=== PATIENT | male | born 1985 | race American Indian/Alaskan Native ===

== ENCOUNTER 2018-11-19 12:06 | Emergency (ER) | payer OTHER ==
[2018-11-19 12:23] VITALS: BP 128/84
[2018-11-19] MEDS ORDERED: IBUPROFEN PO ONE (12:51)
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
== END 2018-11-19 14:44 | disposition home or self-care (01) ==
LOC: EDSEX → ED 12:06
DX: S63.502A Unspecified sprain of left wrist, initial encounter (principal); S60.221A Contusion of right hand, initial encounter; V49.49XA Driver injured in collision with other motor vehicles in traffic accident, initial encounter; Y93.89 Activity, other specified; Y92.89 Other specified places as the place of occurrence of the external cause; Y99.8 Other external cause status

== ENCOUNTER 2019-04-14 11:58 | Emergency (ER) | payer SELFPAY ==
--- NOTE | 2019-04-14 12:32 | Emergency Department Report ---
Blank Doc - Documentation Documentation: 33-year-old male that presents with right sided neck pain with radiation of ri ght arm. Denies any injuries This initial assessment/diagnostic orders/clinical plan/treatment(s) is/are subject to change based on patient's health status, clinical progression and re- assessment by fellow clinical providers in the ED. Further treatment and workup at subsequent clinical providers discretion. Patient/guardians urged not to elope from the ED as their condition may be serious if not clinically assessed and managed. Initial orders include: 1- Patient sent to [facility] for further evaluation and treatment
[2019-04-14 12:33] VITALS: BP 114/75
--- NOTE | 2019-04-14 13:23 | Emergency Department Report ---
ED Neck Pain/Injury HPI - General Chief Complaint: Back Pain/Injury Stated Complaint: UPPER BACK/ ARM PAIN Time Seen by Provider: 04/14/19 12:31 Mode of arrival: Ambulatory Limitations: No Limitations - History of Present Illness Initial Comments: This is a 33-year-old male nontoxic, well nourished in appearance, no acute signs of distress presents to the ED with c/o of left sided upper back pain. Patient stated that he wake up this way. Patient denies any trauma. Denies any bladder or bowel instability. Stated pain radiates to left arm. Patient denies any urinary symptoms. Denies any fever, chills, nausea, vomiting, headache, stiff neck, chest pain or shortness of breath. Patient denies any numbness or tingling. Denies any allergies. MD Complaint: upper back pain -: This morning Place: home Radiation: left upper extremity Severity: mild Severity scale (0 -10): 8 Quality: other (aching) Consistency: intermittent Improves With: immobilization Worsens With: movement of extremity, movement of neck Associated Symptoms: none. denies: headache, fever, numbness, tingling, weakness, vertigo, difficulty walking, swollen glands, difficulty swallowing, nausea, vomiting Treatments Prior to Arrival: none - Related Data Previous Rx's Medication Instructions Recorded Last Taken Type Ketorolac [Toradol] 10 mg PO Q6H PRN #12 tablet 11/19/18 Unknown Rx traMADol [Ultram] 50 mg PO Q6HR PRN #12 tablet 11/19/18 Unknown Rx Cyclobenzaprine [Flexeril] 10 mg PO QHS PRN #10 tablet 04/14/19 Unknown Rx Naproxen 500 mg PO BID PRN #20 tablet 04/14/19 Unknown Rx Allergies Allergy/AdvReac Type Severity Reaction Status Date / Time No Known Allergies Allergy Verified 11/19/18 12:09 ED Review of Systems ROS: Stated complaint: UPPER BACK/ ARM PAIN Other details as noted in HPI Constitutional: denies: chills, fever Eyes: denies: eye pain, eye discharge, vision change ENT: denies: ear pain, throat pain Respiratory: denies: cough, shortness of breath, wheezing Cardiovascular: denies: chest pain, palpitations Endocrine: no symptoms reported Gastrointestinal: denies: abdominal pain, nausea, diarrhea Genitourinary: denies: urgency, dysuria Musculoskeletal: denies: back pain, joint swelling, arthralgia Skin: denies: rash, lesions Neurological: denies: headache, weakness, paresthesias Psychiatric: denies: anxiety, depression Hematological/Lymphatic: denies: easy bleeding, easy bruising ED Past Medical Hx - Past Medical History Previous Medical History?: Yes Hx Diabetes: Yes - Surgical History Past Surgical History?: Yes Additional Surgical History: bilateral cataract surgery - Social History Smoking Status: Current Every Day Smoker Substance Use Type: None - Medications Home Medications: Home Medications Medication Instructions Recorded Confirmed Last Taken Type Ketorolac [Toradol] 10 mg PO Q6H PRN #12 tablet 11/19/18 Unknown Rx traMADol [Ultram] 50 mg PO Q6HR PRN #12 tablet 11/19/18 Unknown Rx Cyclobenzaprine [Flexeril] 10 mg PO QHS PRN #10 tablet 04/14/19 Unknown Rx Naproxen 500 mg PO BID PRN #20 tablet 04/14/19 Unknown Rx ED Physical Exam - General Limitations: No Limitations General appearance: alert, in no apparent distress - Head Head exam: Present: atraumatic, normocephalic - Neck Neck exam: Present: normal inspection, full ROM. Absent: tenderness, meningismus, lymphadenopathy - Extremities Exam Extremities exam: Present: normal inspection, full ROM, normal capillary refill. Absent: tenderness, joint swelling - Back Exam Back exam: Present: normal inspection, full ROM, paraspinal tenderness (right cervical paraspinal area). Absent: tenderness, CVA tenderness (R), CVA tenderness (L), muscle spasm, vertebral tenderness, rash noted - Neurological Exam Neurological exam: Present: alert, oriented X3, normal gait - Psychiatric Psychiatric exam: Present: normal affect, normal mood - Skin Skin exam: Present: warm, dry, intact, normal color. Absent: rash ED Course Vital Signs 04/14/19 12:31 Temperature 98.3 F Pulse Rate 85 Respiratory 18 Rate Blood Pressure 114/75 O2 Sat by Pulse 99 Oximetry - Reevaluation(s) Reevaluation #1: 04/14/19 13:21 Patient is speaking in full sentences with no signs of distress noted. ED Medical Decision Making - Medical Decision Making This is a 33-year-old male that presents with upper back strain. Patient is stable was examined by me. There is no spinal tenderness. There is no cauda equina syndrome during examination. No bladder or bowel instability. Patient is discharged with muscle relaxant and NSAID. Patient was instructed not to operate any machinery while taking muscle relaxant as they cause her drowsiness. Patient was referred to Follow-up with a primary care doctor in 3-5 days or if symptoms worsen and continue return to emergency room as soon as possible. At time of discharge, the patient does not seem toxic or ill in appearance. No acute signs of distress noted. Patient agrees to discharge treatment plan of care. No further questions noted by the patient. Critical care attestation.: If time is entered above; I have spent that time in minutes in the direct care of this critically ill patient, excluding procedure time. ED Disposition Clinical Impression: Cervical muscle strain Qualifiers: Encounter type: initial encounter Qualified Code(s): S16.1XXA - Strain of musc le, fascia and tendon at neck level, initial encounter Disposition: TO HOME OR SELFCARE Is pt being admited?: No Does the pt Need Aspirin: No Condition: Stable Instructions: Muscle Strain (ED), Cyclobenzaprine (By mouth) Additional Instructions: Follow-up with a primary care doctor in 3-5 days or if symptoms worsen and continue return to emergency room as soon as possible. Prescriptions: Cyclobenzaprine [Flexeril] 10 mg PO QHS PRN #10 tablet PRN Reason: Muscle Spasm Naproxen 500 mg PO BID PRN #20 tablet PRN Reason: Pain , Severe (7-10) Referrals: PRIMARY CAREMD [Referring] - 3-5 Days FARHAD MONTANA MD [Staff Physician] - 3-5 Days [facility] [Outside] - 3-5 Days [facility] [Outside] - 3-5 Days Forms: Work/School Release Form(ED)
== END 2019-04-14 14:15 | disposition home or self-care (01) ==
LOC: ED 11:58
DX: S16.1XXA Strain of muscle, fascia and tendon at neck level, initial encounter (principal); E11.9 Type 2 diabetes mellitus without complications; F17.200 Nicotine dependence, unspecified, uncomplicated; Z79.899 Other long term (current) drug therapy; X50.0XXA Overexertion from strenuous movement or load, initial encounter; Y93.89 Activity, other specified; Y92.89 Other specified places as the place of occurrence of the external cause; Y99.8 Other external cause status
CPT/HCPCS: 99281

== ENCOUNTER 2019-08-29 12:08 | Emergency (ER) | payer SELFPAY ==
[2019-08-29 12:18] VITALS: BP 144/86
== END 2019-08-29 15:56 | disposition left against medical advice (07) ==
LOC: ED 12:08
DX: M54.5 Low back pain (principal); Z53.21 Procedure and treatment not carried out due to patient leaving prior to being seen by health care provider
CPT/HCPCS: 82962

== ENCOUNTER 2020-04-22 10:26 | Emergency (ER) | payer SELFPAY ==
[2020-04-22 10:50] VITALS: BP 125/81
--- NOTE | 2020-04-22 10:50 | Event Note ---
ED Screening Note Date of service: 04/22/20 Time: 10:49 ED Screening Note: Patient complains of mid/upper abdominal pain x1 to 2 weeks History of type 1 diabetes Denies any nausea/vomiting This initial assessment/diagnostic orders/clinical plan/treatment(s) is/are subject to change based on patients health status, clinical progression and re- assessment by fellow clinical providers in the ED. Further treatment and workup at subsequent clinical providers discretion. Patient/guardian urged not to elope from the ED as their condition may be serious if not clinically assessed and managed. Initial orders include: Labs
[2020-04-22 11:38] LABS: Basophils % (Auto) 0.2 % (0.0-1.8); Eosinophils % (Auto) 0.5 % (0.0-4.3); Hematocrit 43.9 % (35.5-45.6); Hemoglobin 14.1 gm/dl (11.8-15.2); Lymphocytes # (Auto) 2.5 K/mm3 (1.2-5.4); Mean Corpuscular HGB Conc 32 % (32-34); Mean Corpuscular Volume 88 fl (84-94); Monocytes # (Auto) 0.8 K/mm3 (0.0-0.8); Monocytes % (Auto) 10.7 % (0.0-7.3); Platelet Count 246 K/mm3 (140-440); Red Cell Distribution Width 12.7 % (13.2-15.2)
[2020-04-22 11:58] LABS: Alanine Aminotransferase 71 units/L (7-56); Albumin 4.3 g/dL (3.9-5); BUN/Creatinine Ratio 18; Blood Urea Nitrogen 11 mg/dL (9-20); Calcium 9.3 mg/dL (8.4-10.2); Hemolysis Index 10
[2020-04-22] MEDS ORDERED: FAMOTIDINE 20 MG TAB PO ONE (12:19)
[2020-04-22] MEDS ORDERED: DICYCLOMINE 20 MG TAB PO ONE (12:19)
--- NOTE | 2020-04-22 12:38 | Emergency Department Report ---
ED Abdominal Pain HPI - General Chief Complaint: Abdominal Pain Stated Complaint: DIARRHEA/UPSET STOMACH Time Seen by Provider: 04/22/20 10:48 Source: patient Mode of arrival: Ambulatory Limitations: No Limitations - History of Present Illness Initial Comments: The patient was evaluated in the emergency department for symptoms described in the history of present illness. He/she was evaluated in the context of the global COVID-19 pandemic, which necessitated consideration that the patient might be at risk for infection with the virus that causes COVID-19. Institutional protocols and algorithms that pertain to the evaluation of patients at risk for COVID-19 are in a state of rapid change based on information released by regulatory bodies including the CDC and federal and state organizations. These policies and algorithms were followed during the patient's care in the emergency department. Please note that these policies, procedures and recommendations changed on a rapid basis. 34-year-old -M[place] male with a current history of diabetes type 1 presents to the emergency room complaining of upper abdominal discomfort for abo ut 1 to 2 weeks. Patient states that it is more like belching and an upset stomach. Patient admits to mild nausea but denies any vomiting. He does admit to diarrhea. Patient denies any painful urination and no increased urination. Patient reports he does not have a primary care provider. Patient states he has not taken anything for his discomfort. Patient reports the last time he seen a provider regarding his diabetes was when he was last seen here June 16, 2019. Patient states that he has been getting his insulin [id number] to the pharmacist. Patient reports he is currently on Levemir 20 units nightly and insulin P NPH 70/30 sliding scale based on his consumption of food. Patient does admit to a 5 pound weight loss in the last 2 to 3 weeks. Patient reports that his blood sugar this morning was 88. Onset/Timin -: week(s) Location: diffuse Radiation: none Migration to: no migration Severity scale (0 -10): 0 Quality: other (Feels upset) Consistency: intermittent Improves With: nothing Worsens With: nothing Associated Symptoms: nausea, diarrhea, anorexia. denies: vomiting, hematemesis, hematochezia - Related Data Home Medications Medication Instructions Recorded Confirmed Last Taken Insulin Detemir [Levemir VIAL] 15 unit SQ QHS 06/16/19 06/16/19 Unknown Insulin NPH/Regular [Novolin 70/30] 10 unit SQ TIDAC 06/16/19 06/16/19 Unknown Previous Rx's Medication Instructions Recorded Last Taken Type Insulin NPH Hum/Reg Insulin Hm 12 unit SQ BID #1 vial 06/16/19 Unknown Rx [Relion Novolin 70-30 Vial] Ketorolac [Toradol] 10 mg PO Q6H PRN #10 tablet 08/29/19 Unknown Rx Naproxen 500 mg PO BID #20 tablet 12/09/19 Unknown Rx Allergies Allergy/AdvReac Type Severity Reaction Status Date / Time No Known Allergies Allergy Verified 12/09/19 10:11 ED Review of Systems ROS: Stated complaint: DIARRHEA/UPSET STOMACH Other details as noted in HPI Comment: All other systems reviewed and negative ED Past Medical Hx - Past Medical History Previous Medical History?: Yes Hx Diabetes: Yes - Surgical History Past Surgical History?: Yes Additional Surgical History: bilateral cataract surgery - Social History Smoking Status: Never Smoker Substance Use Type: None - Medications Home Medications: Home Medications Medication Instructions Recorded Confirmed Last Taken Type Insulin Detemir [Levemir VIAL] 15 unit SQ QHS 06/16/19 06/16/19 Unknown History Insulin NPH Hum/Reg Insulin Hm 12 unit SQ BID #1 vial 06/16/19 Unknown Rx [Relion Novolin 70-30 Vial] Insulin NPH/Regular [Novolin 70/30] 10 unit SQ TIDAC 06/16/19 06/16/19 Unknown History Ketorolac [Toradol] 10 mg PO Q6H PRN #10 tablet 08/29/19 Unknown Rx Naproxen 500 mg PO BID #20 tablet 12/09/19 Unknown Rx ED Physical Exam - General Limitations: No Limitations General appearance: alert, in no apparent distress, cachectic - Head Head exam: Present: atraumatic, normocephalic - Eye Eye exam: Present: normal appearance - ENT ENT exam: Present: mucous membranes moist - Neck Neck exam: Present: normal inspection - Respiratory Respiratory exam: Present: normal lung sounds bilaterally. Absent: respiratory distress - Cardiovascular Cardiovascular Exam: Present: regular rate, normal rhythm. Absent: systolic murmur, diastolic murmur, rubs, gallop - GI/Abdominal GI/Abdominal exam: Present: soft, normal bowel sounds. Absent: distended, tenderness, guarding - Rectal Rectal exam: Present: deferred - Extremities Exam Extremities exam: Present: normal inspection - Back Exam Back exam: Present: normal inspection - Neurological Exam Neurological exam: Present: alert, oriented X3 ED Course Vital Signs 04/22/20 04/22/20 10:47 11:23 Temperature 98.0 F Pulse Rate 67 Respiratory 18 18 Rate Blood Pressure 125/81 [Right] O2 Sat by Pulse 100 99 Oximetry ED Medical Decision Making - Lab Data Result diagrams: 04/22/20 11:13 04/22/20 11:13 - Medical Decision Making 34-year-old -M[place] male with a current history of diabetes type 1 presents to the emergency room complaining of upper abdominal discomfort for about 1 to 2 weeks. Patient states that it is more like belching and an upset stomach. Patient admits to mild nausea but denies any vomiting. He does admit to diarrhea. Patient denies any painful urination and no increased urination. Patient reports he does not have a primary care provider. Patient states he has not taken anything for his discomfort. Patient reports the last time he seen a provider regarding his diabetes was when he was last seen here June 16, 2019. Patient states that he has been getting his insulin [id number] to the pharmacist. Patient reports he is currently on Levemir 20 units nightly and insulin P NPH 70/30 sliding scale based on his consumption of food. Patient does admit to a 5 pound weight loss in the last 2 to 3 weeks. Patient blood sugar from his [facility] was 312. Patient was given 2 units of regular insulin. Bentyl and Pepcid. We will recheck blood sugar. . Blood sugar on repeat was 217. Patient is stable to be discharged home Critical care attestation.: If time is entered above; I have spent that time in minutes in the direct care of this critically ill patient, excluding procedure time. ED Disposition Clinical Impression: Insulin dependent diabetes mellitus, Abdominal pain Disposition: DC-01 TO HOME OR SELFCARE Is pt being admited?: No Does the pt Need Aspirin: No Condition: Stable Instructions: Diabetes Mellitus Type 2 in Adults (ED), Abdominal Pain, Adult, [id number] Additional Instructions: Please continue taking your medications as prescribed. Follow-up with a primary care provider I have listed 1 below for your convenience. Referrals: [facility] [Provider Group] - 3-5 Days Forms: Work/School Release Form(ED)
[2020-04-22] MEDS ORDERED: INSULIN REGULAR, HUMAN 100 UNIT/ML 3ML VIAL SUB-Q ONE (12:44)
[2020-04-22] MEDS ORDERED: INSULIN REGULAR, HUMAN 100 UNITS/1 ML ONE (14:00)
== END 2020-04-22 14:44 | disposition home or self-care (01) ==
LOC: ED 10:26
DX: E11.9 Type 2 diabetes mellitus without complications (principal); Z79.4 Long term (current) use of insulin; Z79.899 Other long term (current) drug therapy; Z98.890 Other specified postprocedural states
CPT/HCPCS: 36415; 80053; 82962; 83690; 85025; 96372; 99282; J1815

== ENCOUNTER 2022-01-16 05:10 | Emergency (ER) | payer SELFPAY ==
[2022-01-16 06:08] VITALS: BP 106/75
== END 2022-01-16 08:00 | disposition left against medical advice (07) ==
LOC: ED 05:10
DX: R10.9 Unspecified abdominal pain (principal); Z53.21 Procedure and treatment not carried out due to patient leaving prior to being seen by health care provider

== ENCOUNTER 2022-02-19 11:33 | Emergency (ER) | payer SELFPAY ==
[2022-02-19 12:21] VITALS: BP 122/78
== END 2022-02-19 13:00 | disposition left against medical advice (07) ==
LOC: ED 11:33
DX: M79.601 Pain in right arm (principal); Z53.21 Procedure and treatment not carried out due to patient leaving prior to being seen by health care provider